=== PATIENT | female | born 1990 | race Caucasian/White ===

== ENCOUNTER 2021-07-27 15:09 | Emergency (ER) | payer OTHER ==
[2021-07-27 17:25] LABS: BILIRUBIN NEGATIVE (NEGATIVE); BLOOD NEGATIVE Ery/uL (NEGATIVE); CLARITY CLEAR (CLEAR); COLOR YELLOW (YELLOW); GLUCOSE (U) NORMAL (NORMAL); LEUKOCYTES NEGATIVE Leu/uL (NEGATIVE); NITRITE NEGATIVE (NEGATIVE); PROTEIN NEGATIVE (NEGATIVE); SPECIFIC GRAVITY 1.015 (1.001-1.030); UROBILINOGEN 0.2 mg/dL (0.2-1.0)
[2021-07-27] MEDS ORDERED: NAPROXEN500 MG PO (17:41)
[2021-07-27] MEDS ORDERED: BACLOFEN 10MG T10 MG PO (17:41)
== END 2021-07-27 18:20 | disposition home or self-care (01) ==
LOC: FER 15:09
PROVIDERS: Nurse Practitioner Family
DX: S39.012A Strain of muscle, fascia and tendon of lower back, initial encounter (principal); W01.0XXA Fall on same level from slipping, tripping and stumbling without subsequent striking against object, initial encounter; Y92.812 Truck as the place of occurrence of the external cause
CPT/HCPCS: 72100; 72220; 81003; 96372; J1100; J1885